=== PATIENT | male | born 1965 | race Caucasian/White ===

== ENCOUNTER 2017-07-11 12:55 | Inpatient (IN) | payer OTHER ==
[2017-07-11 16:17] VITALS: BMI 24.4
--- NOTE | 2017-07-11 17:44 | HP ---
COWS - Scale Resting Pulse: 1= TN 81-100 Sweatin= Chills/Flushing Restless Observation: 1= Difficult to Sit Still Pupil Size: 1= Pupils >than Normal Bone or Joint Aches: 1= Mild Discomfort Runny Nose/ Eye Tearin= Nasal Congestion GI Upset > 30mins: 2= Nausea/Diarrhea Tremor Observation: 2= Slight Tremor Visible Yawning Observation: 1= 1-2x During Session Anxiety or Irritability: 2=Irritable/Anxious Goose Flesh Skin: 3=Piloerection COWS Score: 16 Admission ROS S - [facility] Chief Complaint: heroin withdrawal sx Allergies/Adverse Reactions: Allergies Allergy/AdvReac Type Severity Reaction Status Date / Time Fish Containing Products Allergy Severe Verified 07/11/17 17:34 No Known Drug Allergies Allergy Verified 07/11/17 17:34 History of Present Illness: 52 yo m with OUD requesting inpatient detox fro [facility] because of opiodi withdrswwal sx. PMHX cutting while incarcerated scars visible c/o thirst, depression,a nxiety adn insomnia no si, h/o IDU no h/ OD. Exam Limitations: No Limitations - Ebola screening Have you traveled outside of the country in the last 21 days: Yes Have you had contact with anyone from an Ebola affected area: No Have you been sick,other than usual withdrawal symptoms: No Do you have a fever: No - Review of Systems Constitutional: Chills, Diaphoresis, Loss of Appetite, Malaise, Night Sweats, Changes in sleep, Unintentional Wgt. Loss EENT: reports: Tearing, Nose Congestion Respiratory: reports: No Symptoms reported Cardiac: reports: No Symptoms Reported GI: reports: Diarrhea, Nausea, Poor Appetite, Poor Fluid Intake, Indigestion, Abdominal cramping : reports: No Symptoms Reported Musculoskeletal: reports: Back Pain, Joint Pain, Muscle Pain Integumentary: reports: Flushing, Sweating Neuro: reports: Headache, Numbness, Paresthesia, Tremors, Weakness Endocrine: reports: Increased Thirst Hematology: reports: No Symptoms Reported Psychiatric: reports: Judgement Intact, Mood/Affect Appropiate, Orientated x3, Anxious, Depressed Other Systems: Reviewed and Negative Patient History - Patient Medical History Hx Anemia: No Hx Asthma: No Hx Chronic Obstructive Pulmonary Disease (COPD): No Hx Cancer: No Hx Cardiac Disorders: No Hx Congestive Heart Failure: No Hx Hypertension: No Hx Hypercholesterolemia: No Hx Pacemaker: No HX Cerebrovascular Accident: No Hx Seizures: No Hx Dementia: No Hx Diabetes: No Hx Gastrointestinal Disorders: No Hx Liver Disease: No Hx Genitourinary Disorders: No Hx Sexually Transmitted Disorders: No Hx Renal Disease (ESRD): No Hx Thyroid Disease: No Hx Human Immunodeficiency Virus (HIV): No Hx Hepatitis C: Yes (treated and cleared hcv) Hx Depression: Yes Hx Suicide Attempt: No (no si) Hx Bipolar Disorder: No Hx Schizophrenia: No Other Medical History: history of self cutting - Patient Surgical History Past Surgical History: No Anesthesia Reaction: No - PPD History Previous Implant?: Yes Documented Results: Negative w/proof Implanted On Prior R Admission?: No PPD to be Administered?: No - Reproductive History Patient is a Female of Child Bearing Age (11 -55 yrs old): No Patient : No - Smoking Cessation Smoking history: Current every day smoker Have you smoked in the past 12 months: Yes Aproximately how many cigarettes per day: 20 Hx Chewing Tobacco Use: No Initiated information on smoking cessation: Yes 'Breaking Loose' booklet given: 07/11/17 - Substance & Tx. History Hx Alcohol Use: No Hx Substance Use: Yes Substance Use Type: Heroin, Opiates Hx Substance Use Treatment: Yes (first episode of drug treatment) - Substances Abused Heroin Route: Injection Frequency: Daily Amount used: 4-15 bags Age of first use: 15 Date of Last Use: 07/10/17 Family Disease History - Family Disease History Family Disease History: Other: Father (suicide), Mother (cocaien depeendence, alcoholic) Admission Physical Exam S - Vital Signs Vital Signs: Vital Signs - 24 hr 07/11/17 16:16 Temperature 98 F Pulse Rate 69 Respiratory 18 Rate Blood Pressure 133/87 - Physical General Appearance: Yes: Nourished, Appropriately Dressed, Disheveled, Mild Distress, Thin, Tremorous, Irritable, Sweating, Anxious HEENTM: Yes: EOMI, Hearing grossly Normal, Normal ENT Inspection, Normocephalic , Normal Voice, IAN, Pharynx Normal, Nasal Congestion, Rhinorrhea Respiratory: Yes: Within Normal Limits, Chest Non-Tender, Lungs Clear, Normal Breath Sounds, No Respiratory Distress, No Accessory Muscle Use Neck: Yes: Within Normal Limits, No masses,lesions,Nodules, Supple, Trachea in good position Breast: Yes: Breast Exam Deferred Cardiology: Yes: Within Normal Limits, Regular Rhythm, Regular Rate, S1, S2 Abdominal: Yes: Normal Bowel Sounds, Non Tender, Flat, Soft Genitourinary: Yes: Within Normal Limits Back: Yes: Normal Inspection, Muscle Spasm Musculoskeletal: Yes: full range of Motion, Gait Steady, Pelvis Stable, Back pain, Muscle Pain Extremities: Yes: Normal Capillary Refill, Normal Inspection, Normal Range of Motion, Tremors Neurological: Yes: fish farmer II-XII NML intact, Fully Oriented, Alert, Motor Strength 5/5, Normal Response, Depressed Affect Integumentary: Yes: Normal Color, Warm, Diaphoresis, Moist, Track [place] (no infection or abscess) Lymphatic: Yes: Within Normal Limits - Addiitonal Findings: withdrawal sx - Diagnostic (1) Dehydration Current Visit: Yes Status: Acute (2) Deliberate self-cutting Current Visit: Yes Status: Acute (3) Depression Current Visit: Yes Status: Acute (4) Nicotine dependence Current Visit: Yes Status: Acute (5) Opioid dependence with withdrawal Current Visit: Yes Status: Acute Cleared for Admission [facility] - Detox or Rehab [facility] Level of Care: Medically Managed Detox Regimen/Protocol: Methadone [facility] Breath Alcohol Content Breath Alcohol Content: 0 Urine Drug Screen - Results Drug Screen Negative: No Urine Drug Screen Results: OPI-Opiates
[2017-07-11] MEDS ORDERED: MAG HYDROX/AL HYDROX/SIMETH 30 ML UNIT-DOSE CUP PO PRN (17:45)
[2017-07-11] MEDS ORDERED: LOPERAMIDE HCL 2 MG CAPSULE PO PRN (17:45)
[2017-07-11] MEDS ORDERED: NICOTINE POLACRILEX 4 MG GUM BC PRN (17:45)
[2017-07-11] MEDS ORDERED: IBUPROFEN 400 MG TABLET (FP) PO PRN (17:45)
[2017-07-11] MEDS ORDERED: MAGNESIUM HYDROX 2400MG/30ML ORAL SUSPENSION 30 ML CUP PO PRN (17:45)
[2017-07-11] MEDS ORDERED: MENTHOL/PHENOL 1 EACH UD MM PRN (17:45)
[2017-07-11] MEDS ORDERED: MAGNESIUM CITRATE 300 ML BOTTLE PO PRN (17:45)
[2017-07-11] MEDS ORDERED: P-EPHED 60MG/TRIPROLIDI 2.5MG TABLET PO PRN (17:45)
[2017-07-11] MEDS ORDERED: guaiFENesin/D-METHORPHAN HB 10 ML UNIT-DOSE CUPS PO PRN (17:45)
[2017-07-11] MEDS ORDERED: METHADONE HCL 10 MG TABLET (FOR DETOX USE ONLY) PO ONE ×3 (17:45→23:00)
[2017-07-11] MEDS ORDERED: ACETAMINOPHEN 325 MG TABLET (FP) PO PRN (17:45)
[2017-07-11] MEDS: diazePAM 5 MG TABLET PO PRN (20:39)
[2017-07-11] MEDS: NICOTINE 21 MG/24 HOURS TOPICAL PATCH TD SCH (20:41)
[2017-07-11] MEDS: THIAMINE HCL 100 MG TABLET (FP) PO SCH (22:05)
[2017-07-11] MEDS: hydrOXYzine PAMOATE 50 MG CAPSULE (FP) PO PRN (22:05)
[2017-07-12 00:30] LABS: URINE APPEARANCE CLEAR; URINE BILIRUBIN NEGATIVE (NEGATIVE); URINE BLOOD 1+ (NEGATIVE); URINE COLOR YELLOW; URINE GLUCOSE (UA) NEGATIVE (NEGATIVE); URINE KETONE NEGATIVE (NEGATIVE); URINE LEUK ESTERASE NEGATIVE (NEGATIVE); URINE NITRITE NEGATIVE (NEGATIVE); URINE PROTEIN NEGATIVE (NEGATIVE)
[2017-07-12 00:48] LABS: CALCIUM OXALATE CRYSTALS RARE /hpf (NONE SEEN); URINE HYALINE CAST 2 /lpf; URINE MUCUS MODERATE
[2017-07-12] MEDS: diazePAM 5 MG TABLET PO PRN ×4 (08:31→22:19)
[2017-07-12] MEDS ORDERED: METHADONE HCL 10 MG TABLET (FOR DETOX USE ONLY) PO ONE (10:00)
[2017-07-12] MEDS: NICOTINE 21 MG/24 HOURS TOPICAL PATCH TD SCH (10:13)
[2017-07-12] MEDS: PRENATAL VITAMINS W/ FOLIC ACID TABLET (FP) PO SCH (10:13)
[2017-07-12 11:01] LABS: HEMATOCRIT 43.5 % (35.4-49); HEMOGLOBIN 14.9 GM/dL (11.7-16.9); MCHC 34.3 g/dl (32.0-35.9); MEAN CELL VOLUME 90.3 fl (80-96); MEAN PLT VOLUME 9.7 fl (7.5-11.1); PLATELET COUNT 164 K/MM3 (134-434); RBC 4.82 M/mm3 (4.00-5.60); RDW 14.2 % (11.9-15.9); WHITE BLOOD COUNT 7.3 K/mm3 (4.0-10.0)
[2017-07-12 11:21] LABS: CHLORIDE 107 mmol/L (98-107); SODIUM 143 mmol/L (136-145)
[2017-07-12 11:32] LABS: ALBUMIN 3.2 g/dl (3.4-5.0); ALK PHOS 68 U/L (45-117); ANION GAP 11 (8-16); BILIRUBIN,TOTAL 0.4 mg/dL (0.2-1.0); BLOOD UREA NITROGEN 14 mg/dL (7-18); CALCIUM 8.4 mg/dL (8.5-10.1); CO2 25 mmol/L (21-32); CREATININE 0.8 mg/dL (0.7-1.3); GLUCOSE,RANDOM 86 mg/dL (74-106); SGOT/AST 21 U/L (15-37); SGPT/ALT 23 U/L (12-78)
--- NOTE | 2017-07-12 11:56 | EKG ---
Test Reason : Blood Pressure : / mmHG Vent. Rate : 060 BPM Atrial Rate : 060 BPM P-R Int : 124 ms QRS Dur : 088 ms QT Int : 400 ms P-R-T Axes : 061 064 065 degrees QTc Int : 400 ms NORMAL SINUS RHYTHM WITH SINUS ARRHYTHMIA NORMAL ECG NO PREVIOUS ECGS AVAILABLE Confirmed by MD MAHESH, NELIDA ([id number]) on 07/12/2017 11:55:52 AM Referred By: Confirmed By:NELIDA ARAGON MD
[2017-07-12 13:04] LABS: SICKLE CELL SCREEN NEGATIVE (NEGATIVE)
--- NOTE | 2017-07-12 14:05 | CONSULT ---
[facility] Psychiatric Consult - Data Date of interview: 07/12/17 Admission source: [facility] Identifying data: First admission to [facility] for this 52 y/o male seeking detox treatment on for heroin dependence.Patient is single without children,homeless,unemployed and deprived of any source of income. Substance Abuse History: Confirmed by patient.Smoking history: Current every day smoker. Have you smoked in the past 12 months: Yes. Aproximately how many cigarettes per day: 20. Hx Chewing Tobacco Use: No. Initiated information on smoking cessation: Yes. 'Breaking Loose' booklet given: 07/11/17. - Substance & Tx. History. Hx Alcohol Use: No. Hx Substance Use: Yes. Substance Use Type : Heroin, Opiates. Hx Substance Use Treatment: Yes (first episode of drug treatment). - Substances Abused. Heroin. Route: Injection. Frequency: Daily. Amount used: 4-15 bags. Age of first use: 15. Date of Last Use: Medical History: Hepatitis C (treated). Psychiatric History: Patient denies history of psychiatric hospitalizations or OPD care.Mr Erickson declares an antecedent of suicide attempts,during incaceration,via self-mutilation (cutting). Physical/Sexual Abuse/Trauma History: Not discussed in this session.Patient declines. Additional Comment: Urine Drug Screen Results: OPI-Opiates.Noted. Mental Status Exam - Mental Status Exam Alert and Oriented to: Time, Place, Person Cognitive Function: Good Patient Appearance: Well Groomed Mood: Withdrawn, Irritable Affect: Appropriate, Normal Range Patient Behavior: Appropriate, Cooperative (superficially) Speech Pattern: Clear, Appropriate Voice Loudness: Normal Thought Process: Intact, Goal Oriented Thought Disorder: Not Present Hallucinations: Denies Suicidal Ideation: Denies Homicidal Ideation: Denies Insight/Judgement: Poor Sleep: Poorly, Difficulty falling asleep Appetite: Good Muscle strength/Tone: Normal Gait/Station: Normal Psychiatric Findings - Problem List ([place] 1, 2,3) (1) Opioid dependence with withdrawal Current Visit: Yes Status: Acute (2) Nicotine dependence Current Visit: Yes Status: Acute (3) Substance induced mood disorder Current Visit: Yes Status: Suspected (4) Insomnia Current Visit: Yes Status: Acute - Initial Treatment Plan Initial Treatment Plan: Sleep hygiene.Psychoeducation.Detoxfication in progress.Ambien 10 mg po hs prn.Ordered.Patient is informed of the risk of sleep -walking.Pepito Erickson agrees with this plan of care.Observation.
--- NOTE | 2017-07-12 15:56 | PN ---
[facility] COWS - Scale Resting Pulse: 0= ND 80 or Below Sweatin= Chills/Flushing Restless Observation: 0= Sits Still Pupil Size: 0= Normal to Room Light Bone or Joint Aches: 2= Severe Diffuse Aches Runny Nose/ Eye Tearin= Nasal Congestion GI Upset > 30mins: 0= None Tremor Observation of Outstretched Hands: 0= None Yawning Observation: 2= >3x During Session Anxiety or Irritability: 2=Irritable/Anxious Goose Flesh Skin: 3=Piloerection COWS Score: 11 S Progress Note (SOAP) Subjective: Sweating, Body Aches, Fatigue, Interrupted Sleep. Objective: PATIENT A & O X 3. NO ACUTE DISTRESS. 07/12/17 15:53 Vital Signs Temperature 98.6 F 07/12/17 14:14 Pulse Rate 73 07/12/17 14:14 Respiratory Rate 16 07/12/17 14:14 Blood Pressure 107/66 07/12/17 14:14 O2 Sat by Pulse Oximetry (%) Laboratory Tests 07/11/17 07/12/17 07/12/17 21:22 07:50 07:50 WBC 7.3 RBC 4.82 Hgb 14.9 Hct 43.5 MCV 90.3 MCH 31.0 MCHC 34.3 RDW 14.2 Plt Count 164 MPV 9.7 Sickle Cell Screen Negative Sodium 143 Potassium 4.0 Chloride 107 Carbon Dioxide 25 Anion Gap 11 BUN 14 Creatinine 0.8 Creat Clearance w eGFR > 60 Random Glucose 86 Calcium 8.4 L Total Bilirubin 0.4 AST 21 ALT 23 Alkaline Phosphatase 68 Total Protein 6.0 L Albumin 3.2 L Urine Color Yellow Urine Appearance Clear Urine pH 6.0 Ur Specific [place] 1.025 Urine Protein Negative Urine Glucose (UA) Negative Urine Ketones Negative Urine Blood 1+ H Urine Nitrite Negative Urine Bilirubin Negative Urine Urobilinogen 2.0 Ur Leukocyte Esterase Negative Urine WBC (Auto) 2 Urine RBC (Auto) 23 Calcium Oxalate Crystal Rare Hyaline Casts 2 Urine Mucus Moderate LABS NOTED. RPR RESULT PENDING. 07/12/17 15:55 Assessment: 07/12/17 15:54 WITHDRAWAL SYMPTOMS. Plan: CONTINUE DETOX.
[2017-07-12] MEDS: THIAMINE HCL 100 MG TABLET (FP) PO SCH (22:18)
[2017-07-13] MEDS: diazePAM 5 MG TABLET PO PRN ×5 (02:20→22:32)
[2017-07-13] MEDS ORDERED: METHADONE HCL 5 MG TABLET (FOR DETOX USE ONLY) PO ONE (10:00)
[2017-07-13] MEDS: PRENATAL VITAMINS W/ FOLIC ACID TABLET (FP) PO SCH (10:16)
[2017-07-13] MEDS: NICOTINE 21 MG/24 HOURS TOPICAL PATCH TD SCH (10:17)
--- NOTE | 2017-07-13 16:10 | PN ---
S COWS - Scale Resting Pulse: 0= DC 80 or Below Sweatin= Chills/Flushing Restless Observation: 3= Extraneous Movement Pupil Size: 0= Normal to Room Light Bone or Joint Aches: 2= Severe Diffuse Aches Runny Nose/ Eye Tearin= Runny Nose/Eyes GI Upset > 30mins: 2= Nausea/Diarrhea Tremor Observation of Outstretched Hands: 2= Slight Tremor Visible Yawning Observation: 1= 1-2x During Session Anxiety or Irritability: 2=Irritable/Anxious Goose Flesh Skin: 0=Smooth Skin COWS Score: 15 [facility] Progress Note (SOAP) Subjective: Chills, sweating, interrupted sleep Objective: 07/13/17 16:06 Last Vital Signs Temp Pulse Resp BP Pulse Ox 97.4 F L 75 18 109/72 07/13/17 14:27 07/13/17 14:27 07/13/17 14:27 07/13/17 14:27 Laboratory Tests 07/11/17 07/12/17 07/12/17 21:22 07:50 07:50 WBC 7.3 RBC 4.82 Hgb 14.9 Hct 43.5 MCV 90.3 MCH 31.0 MCHC 34.3 RDW 14.2 Plt Count 164 MPV 9.7 Sickle Cell Screen Negative Sodium 143 Potassium 4.0 Chloride 107 Carbon Dioxide 25 Anion Gap 11 BUN 14 Creatinine 0.8 Creat Clearance w eGFR > 60 Random Glucose 86 Calcium 8.4 L Total Bilirubin 0.4 AST 21 ALT 23 Alkaline Phosphatase 68 Total Protein 6.0 L Albumin 3.2 L Urine Color Yellow Urine Appearance Clear Urine pH 6.0 Ur Specific [place] 1.025 Urine Protein Negative Urine Glucose (UA) Negative Urine Ketones Negative Urine Blood 1+ H Urine Nitrite Negative Urine Bilirubin Negative Urine Urobilinogen 2.0 Ur Leukocyte Esterase Negative Urine WBC (Auto) 2 Urine RBC (Auto) 23 Calcium Oxalate Crystal Rare Hyaline Casts 2 Urine Mucus Moderate RPR Titer 07/12/17 07:50 WBC RBC Hgb Hct MCV MCH MCHC RDW Plt Count MPV Sickle Cell Screen Sodium Potassium Chloride Carbon Dioxide Anion Gap BUN Creatinine Creat Clearance w eGFR Random Glucose Calcium Total Bilirubin AST ALT Alkaline Phosphatase Total Protein Albumin Urine Color Urine Appearance Urine pH Ur Specific [place] Urine Protein Urine Glucose (UA) Urine Ketones Urine Blood Urine Nitrite Urine Bilirubin Urine Urobilinogen Ur Leukocyte Esterase Urine WBC (Auto) Urine RBC (Auto) Calcium Oxalate Crystal Hyaline Casts Urine Mucus RPR Titer Nonreactive Labs noted: abnormal UA Assessment: 07/13/17 16:08 Withdrawal symptoms Noted with microscopic hematuria Plan: Continue detox Microscopic hematuria: encouraged to drink lots of water, repeat UA
[2017-07-13] MEDS: THIAMINE HCL 100 MG TABLET (FP) PO SCH (22:04)
[2017-07-14] MEDS: diazePAM 5 MG TABLET PO PRN ×3 (05:21→14:43)
[2017-07-14] MEDS ORDERED: METHADONE HCL 5 MG TABLET (FOR DETOX USE ONLY) PO ONE (10:00)
[2017-07-14] MEDS: PRENATAL VITAMINS W/ FOLIC ACID TABLET (FP) PO SCH (10:13)
[2017-07-14 10:18] LABS: URINE APPEARANCE CLEAR; URINE BILIRUBIN NEGATIVE (NEGATIVE); URINE BLOOD NEGATIVE (NEGATIVE); URINE COLOR LTYELLOW; URINE GLUCOSE (UA) NEGATIVE (NEGATIVE); URINE KETONE NEGATIVE (NEGATIVE); URINE LEUK ESTERASE NEGATIVE (NEGATIVE); URINE NITRITE NEGATIVE (NEGATIVE); URINE PROTEIN NEGATIVE (NEGATIVE); URINE UROBILINOGEN NEGATIVE mg/dL (0.2-1.0)
[2017-07-14] MEDS: NICOTINE 21 MG/24 HOURS TOPICAL PATCH TD SCH (11:54)
--- NOTE | 2017-07-14 13:11 | PN ---
S Progress Note (SOAP) Subjective: Tremors abd cramp Sleep disturbance Objective: 07/14/17 13:09 A & O X 3 No acute distress Denies SI/HI Vital Signs Temperature 98.1 F 07/14/17 09:56 Pulse Rate 73 07/14/17 09:56 Respiratory Rate 18 07/14/17 09:56 Blood Pressure 111/74 07/14/17 09:56 O2 Sat by Pulse Oximetry (%) Laboratory Last Values WBC 7.3 K/mm3 (4.0-10.0) 07/12/17 07:50 RBC 4.82 M/mm3 (4.00-5.60) 07/12/17 07:50 Hgb 14.9 GM/dL (11.7-16.9) 07/12/17 07:50 Hct 43.5 % (35.4-49) 07/12/17 07:50 MCV 90.3 fl (80-96) 07/12/17 07:50 MCH 31.0 pg (25.7-33.7) 07/12/17 07:50 MCHC 34.3 g/dl (32.0-35.9) 07/12/17 07:50 RDW 14.2 % (11.9-15.9) 07/12/17 07:50 Plt Count 164 K/MM3 (134-434) 07/12/17 07:50 MPV 9.7 fl (7.5-11.1) 07/12/17 07:50 Sickle Cell Screen Negative (NEGATIVE) 07/12/17 07:50 Sodium 143 mmol/L (136-145) 07/12/17 07:50 Potassium 4.0 mmol/L (3.5-5.1) 07/12/17 07:50 Chloride 107 mmol/L (98-107) 07/12/17 07:50 Carbon Dioxide 25 mmol/L (21-32) 07/12/17 07:50 Anion Gap 11 (8-16) 07/12/17 07:50 BUN 14 mg/dL (7-18) 07/12/17 07:50 Creatinine 0.8 mg/dL (0.7-1.3) 07/12/17 07:50 Creat Clearance w eGFR > 60 (>60) 07/12/17 07:50 Random Glucose 86 mg/dL (74-106) 07/12/17 07:50 Calcium 8.4 mg/dL (8.5-10.1) L 07/12/17 07:50 Total Bilirubin 0.4 mg/dL (0.2-1.0) 07/12/17 07:50 AST 21 U/L (15-37) 07/12/17 07:50 ALT 23 U/L (12-78) 07/12/17 07:50 Alkaline Phosphatase 68 U/L (45-117) 07/12/17 07:50 Total Protein 6.0 g/dl (6.4-8.2) L 07/12/17 07:50 Albumin 3.2 g/dl (3.4-5.0) L 07/12/17 07:50 Urine Color Ltyellow 07/14/17 07:00 Urine Appearance Clear 07/14/17 07:00 Urine pH 6.0 (5.0-8.0) 07/14/17 07:00 Ur Specific [place] 1.013 (1.001-1.035) 07/14/17 07:00 Urine Protein Negative (NEGATIVE) 07/14/17 07:00 Urine Glucose (UA) Negative (NEGATIVE) 07/14/17 07:00 Urine Ketones Negative (NEGATIVE) 07/14/17 07:00 Urine Blood Negative (NEGATIVE) 07/14/17 07:00 Urine Nitrite Negative (NEGATIVE) 07/14/17 07:00 Urine Bilirubin Negative (NEGATIVE) 07/14/17 07:00 Urine Urobilinogen Negative mg/dL (0.2-1.0) 07/14/17 07:00 Ur Leukocyte Esterase Negative (NEGATIVE) 07/14/17 07:00 Urine WBC (Auto) 2 /hpf (3-5) 07/11/17 21:22 Urine RBC (Auto) 23 /hpf (0-3) 07/11/17 21:22 Calcium Oxalate Crystal Rare /hpf (NONE SEEN) 07/11/17 21:22 Hyaline Casts 2 /lpf 07/11/17 21:22 Urine Mucus Moderate 07/11/17 21:22 RPR Titer Nonreactive (NONREACTIVE) 07/12/17 07:50 labs/UA noted Assessment: 07/14/17 13:10 withdrawal sx Plan: continue detox Increase hydration
[2017-07-14] MEDS: hydrOXYzine PAMOATE 50 MG CAPSULE (FP) PO PRN (19:44)
[2017-07-14] MEDS: THIAMINE HCL 100 MG TABLET (FP) PO SCH (22:27)
[2017-07-15] MEDS ORDERED: METHADONE HCL 10 MG TABLET (FOR DETOX USE ONLY) PO ONE (10:00)
[2017-07-15] MEDS: NICOTINE 21 MG/24 HOURS TOPICAL PATCH TD SCH (10:27)
[2017-07-15] MEDS: PRENATAL VITAMINS W/ FOLIC ACID TABLET (FP) PO SCH (10:27)
--- NOTE | 2017-07-15 12:31 | PN ---
[facility] Progress Note (SOAP) Subjective: Constipation, Stomach Cramping, Fatigue, Tremors. Objective: PATIENT A & O X 3. NO ACUTE DISTRESS. 07/15/17 12:30 Vital Signs Temperature 97.3 F L 07/15/17 09:07 Pulse Rate 82 07/15/17 09:07 Respiratory Rate 18 07/15/17 09:07 Blood Pressure 118/74 07/15/17 09:07 O2 Sat by Pulse Oximetry (%) Laboratory Tests 07/11/17 07/12/17 07/12/17 21:22 07:50 07:50 WBC 7.3 RBC 4.82 Hgb 14.9 Hct 43.5 MCV 90.3 MCH 31.0 MCHC 34.3 RDW 14.2 Plt Count 164 MPV 9.7 Sickle Cell Screen Negative Sodium 143 Potassium 4.0 Chloride 107 Carbon Dioxide 25 Anion Gap 11 BUN 14 Creatinine 0.8 Creat Clearance w eGFR > 60 Random Glucose 86 Calcium 8.4 L Total Bilirubin 0.4 AST 21 ALT 23 Alkaline Phosphatase 68 Total Protein 6.0 L Albumin 3.2 L Urine Color Yellow Urine Appearance Clear Urine pH 6.0 Ur Specific [employer] 1.025 Urine Protein Negative Urine Glucose (UA) Negative Urine Ketones Negative Urine Blood 1+ H Urine Nitrite Negative Urine Bilirubin Negative Urine Urobilinogen 2.0 Ur Leukocyte Esterase Negative Urine WBC (Auto) 2 Urine RBC (Auto) 23 Calcium Oxalate Crystal Rare Hyaline Casts 2 Urine Mucus Moderate RPR Titer 07/12/17 07/14/17 07:50 07:00 WBC RBC Hgb Hct MCV MCH MCHC RDW Plt Count MPV Sickle Cell Screen Sodium Potassium Chloride Carbon Dioxide Anion Gap BUN Creatinine Creat Clearance w eGFR Random Glucose Calcium Total Bilirubin AST ALT Alkaline Phosphatase Total Protein Albumin Urine Color Ltyellow Urine Appearance Clear Urine pH 6.0 Ur Specific [employer] 1.013 Urine Protein Negative Urine Glucose (UA) Negative Urine Ketones Negative Urine Blood Negative Urine Nitrite Negative Urine Bilirubin Negative Urine Urobilinogen Negative Ur Leukocyte Esterase Negative Urine WBC (Auto) Urine RBC (Auto) Calcium Oxalate Crystal Hyaline Casts Urine Mucus RPR Titer Nonreactive LABS NOTED. Assessment: 07/15/17 12:30 WITHDRAWAL SYMPTOMS. Plan: CONTINUE DETOX.
[2017-07-15] MEDS: hydrOXYzine PAMOATE 50 MG CAPSULE (FP) PO PRN (22:26)
[2017-07-15] MEDS: THIAMINE HCL 100 MG TABLET (FP) PO SCH (22:26)
[2017-07-16] MEDS ORDERED: METHADONE HCL 5 MG TABLET (FOR DETOX USE ONLY) PO ONE (06:00)
[2017-07-16 06:28] VITALS: TEMP 97
[2017-07-16 09:12] VITALS: BP 119/74; PULSE 77
[2017-07-16] MEDS: NICOTINE 21 MG/24 HOURS TOPICAL PATCH TD SCH (11:48)
[2017-07-16] MEDS: PRENATAL VITAMINS W/ FOLIC ACID TABLET (FP) PO SCH (11:49)
--- NOTE | 2017-07-16 11:49 | DS ---
[facility] Detox Discharge Summary Admission Date: 07/11/17 Discharge Date: 07/16/17 - History Present History: Opioid Dependence Additional Comments: PATIENT GOING TO [facility] ([place]) FOR AFTERCARE. PATIENT WAS DISCHARGED FROM DETOX UNIT IN STABLE MEDICAL CONDITION. Pertinent Past History: Nicotine Dependence, Insomnia, Depression, History of Self-Cutting, Hep C ( Treated). - Physical Exam Results Vital Signs: Vital Signs Temperature 97.0 F L 07/16/17 09:11 Pulse Rate 77 07/16/17 09:11 Respiratory Rate 20 07/16/17 09:11 Blood Pressure 119/74 07/16/17 09:11 O2 Sat by Pulse Oximetry (%) Pertinent Admission Physical Exam Findings: WITHDRAWAL SYMPTOMS. Laboratory Tests 07/11/17 07/12/17 07/12/17 21:22 07:50 07:50 WBC 7.3 RBC 4.82 Hgb 14.9 Hct 43.5 MCV 90.3 MCH 31.0 MCHC 34.3 RDW 14.2 Plt Count 164 MPV 9.7 Sickle Cell Screen Negative Sodium 143 Potassium 4.0 Chloride 107 Carbon Dioxide 25 Anion Gap 11 BUN 14 Creatinine 0.8 Creat Clearance w eGFR > 60 Random Glucose 86 Calcium 8.4 L Total Bilirubin 0.4 AST 21 ALT 23 Alkaline Phosphatase 68 Total Protein 6.0 L Albumin 3.2 L Urine Color Yellow Urine Appearance Clear Urine pH 6.0 Ur Specific [place] 1.025 Urine Protein Negative Urine Glucose (UA) Negative Urine Ketones Negative Urine Blood 1+ H Urine Nitrite Negative Urine Bilirubin Negative Urine Urobilinogen 2.0 Ur Leukocyte Esterase Negative Urine WBC (Auto) 2 Urine RBC (Auto) 23 Calcium Oxalate Crystal Rare Hyaline Casts 2 Urine Mucus Moderate RPR Titer 07/12/17 07/14/17 07:50 07:00 WBC RBC Hgb Hct MCV MCH MCHC RDW Plt Count MPV Sickle Cell Screen Sodium Potassium Chloride Carbon Dioxide Anion Gap BUN Creatinine Creat Clearance w eGFR Random Glucose Calcium Total Bilirubin AST ALT Alkaline Phosphatase Total Protein Albumin Urine Color Ltyellow Urine Appearance Clear Urine pH 6.0 Ur Specific [place] 1.013 Urine Protein Negative Urine Glucose (UA) Negative Urine Ketones Negative Urine Blood Negative Urine Nitrite Negative Urine Bilirubin Negative Urine Urobilinogen Negative Ur Leukocyte Esterase Negative Urine WBC (Auto) Urine RBC (Auto) Calcium Oxalate Crystal Hyaline Casts Urine Mucus RPR Titer Nonreactive LABS NOTED. - Treatment Hospital Course: Detox Protocol Followed, Detoxed Safely, Responded well, Discharged Condition Good, Rehab Referral Accepted Patient has Accepted a Rehab Referral to: [facility] ([place], [place] . - Medication Discharge Medications: Ambulatory Orders NK [No Known Home Medication] 07/11/17 - Diagnosis (1) Deliberate self-cutting Current Visit: Yes Status: Acute (2) Nicotine dependence Current Visit: Yes Status: Chronic Qualifiers: Nicotine product type: cigarettes Substance use status: uncomplicated Qualified Code(s): F17.210 - Nicotine dependence, cigarettes, uncomplicated (3) Opioid dependence with withdrawal Current Visit: Yes Status: Acute (4) Dehydration Current Visit: Yes Status: Acute (5) Depression Current Visit: Yes Status: Chronic Qualifiers: Depression Type: unspecified Qualified Code(s): F32.9 - Major depressive disorder, single episode, unspecified (6) Insomnia Current Visit: Yes Status: Acute Qualifiers: Insomnia type: unspecified Qualified Code(s): G47.00 - Insomnia, unspecified (7) Substance induced mood disorder Current Visit: Yes Status: Suspected - AMA Did Patient Leave Against Medical Advice: No
--- NOTE | 2017-07-16 13:30 | PN ---
[facility] Progress Note (SOAP) Subjective: Patient Reports that current Detox symptoms are minimal and that he feels well overall at this time. Objective: PATIENT A & O X 3, OBSERVED AMBULATING ON UNIT. NO ACUTE DISTRESS. 07/16/17 13:28 Vital Signs Temperature 97.0 F L 07/16/17 09:11 Pulse Rate 77 07/16/17 09:11 Respiratory Rate 20 07/16/17 09:11 Blood Pressure 119/74 07/16/17 09:11 O2 Sat by Pulse Oximetry (%) Laboratory Tests 07/11/17 07/12/17 07/12/17 21:22 07:50 07:50 WBC 7.3 RBC 4.82 Hgb 14.9 Hct 43.5 MCV 90.3 MCH 31.0 MCHC 34.3 RDW 14.2 Plt Count 164 MPV 9.7 Sickle Cell Screen Negative Sodium 143 Potassium 4.0 Chloride 107 Carbon Dioxide 25 Anion Gap 11 BUN 14 Creatinine 0.8 Creat Clearance w eGFR > 60 Random Glucose 86 Calcium 8.4 L Total Bilirubin 0.4 AST 21 ALT 23 Alkaline Phosphatase 68 Total Protein 6.0 L Albumin 3.2 L Urine Color Yellow Urine Appearance Clear Urine pH 6.0 Ur Specific [place] 1.025 Urine Protein Negative Urine Glucose (UA) Negative Urine Ketones Negative Urine Blood 1+ H Urine Nitrite Negative Urine Bilirubin Negative Urine Urobilinogen 2.0 Ur Leukocyte Esterase Negative Urine WBC (Auto) 2 Urine RBC (Auto) 23 Calcium Oxalate Crystal Rare Hyaline Casts 2 Urine Mucus Moderate RPR Titer 07/12/17 07/14/17 07:50 07:00 WBC RBC Hgb Hct MCV MCH MCHC RDW Plt Count MPV Sickle Cell Screen Sodium Potassium Chloride Carbon Dioxide Anion Gap BUN Creatinine Creat Clearance w eGFR Random Glucose Calcium Total Bilirubin AST ALT Alkaline Phosphatase Total Protein Albumin Urine Color Ltyellow Urine Appearance Clear Urine pH 6.0 Ur Specific [place] 1.013 Urine Protein Negative Urine Glucose (UA) Negative Urine Ketones Negative Urine Blood Negative Urine Nitrite Negative Urine Bilirubin Negative Urine Urobilinogen Negative Ur Leukocyte Esterase Negative Urine WBC (Auto) Urine RBC (Auto) Calcium Oxalate Crystal Hyaline Casts Urine Mucus RPR Titer Nonreactive LABS NOTED. Assessment: 07/16/17 13:28 WITHDRAWAL SYMPTOMS. Plan: PATIENT COMPLETED FULL DETOX REGIMEN (METHADONE), SCHEDULED FOR DISCHARGE FROM DETOX UNIT TODAY. PATIENT SCHEDULED TO GO ON TO [facility].
== END 2017-07-16 14:16 | disposition other institution (70) | DRG 773 ==
LOC: YASAS 12:55 → Y3N 18:28
PROVIDERS: ADMIT Internal Medicine; ATTEND Internal Medicine
PROC: HZ2ZZZZ Detoxification Services for Substance Abuse Treatment (ICD-10-PCS; principal; 2017-07-11)
DX: F11.23 Opioid dependence with withdrawal (principal); F17.210 Nicotine dependence, cigarettes, uncomplicated; F32.9 Major depressive disorder, single episode, unspecified; F19.24 Other psychoactive substance dependence with psychoactive substance-induced mood disorder; E86.0 Dehydration; G47.00 Insomnia, unspecified; R31.29 Other microscopic hematuria; Z91.013 Allergy to seafood; Z91.5 Personal history of self-harm; Z59.0 Homelessness
CPT/HCPCS: 36415; 80053; 81003; 81015; 85027; 85660; 86593; 93005; 93010

== ENCOUNTER 2017-07-16 13:43 | Inpatient (IN) | payer OTHER ==
--- NOTE | 2017-07-16 11:45 | HP ---
[facility] Rehab Assess/Revision - Admission History Admitted to Rehab from: [facility] Date of Admission to Rehab: 07/16/2017 - Vital signs Vital Signs: NOTED; STABLE. - Findings Detox History & Physical reviewed: Yes Concur with findings: Yes Comments/Additional Findings: PATIENT'S MEDICAL / MEDICATION HISTORY REVIEWED PRIOR TO DISCHARGE FROM DETOX UNIT. PATIENT WAS DISCHARGED FROM DETOX UNIT TO BE TAKEN TO REHAB UNIT IN STABLE MEDICAL CONDITION. Inpatient Rehab Admission - Initial Determination Are CD services needed?: Yes Free of communicable disease: Yes Not in need of hospitalization: Yes - Rehab Admission Criteria Poor recovery environment: Yes Comorbidities: Yes Patient is meeting Inpatient Rehab admission criteria:: Yes
[~2017-07-16 13:43] MED LIST: ACETAMINOPHEN 325 MG TABLET (FP) PO PRN; IBUPROFEN 400 MG TABLET (FP) PO PRN; LOPERAMIDE HCL 2 MG CAPSULE PO PRN; MAG HYDROX/AL HYDROX/SIMETH 30 ML UNIT-DOSE CUP PO PRN; MAGNESIUM CITRATE 300 ML BOTTLE PO PRN; MAGNESIUM HYDROX 2400MG/30ML ORAL SUSPENSION 30 ML CUP PO PRN; MENTHOL/PHENOL 1 EACH UD MM PRN; NICOTINE POLACRILEX 4 MG GUM BUC PRN; P-EPHED 60MG/TRIPROLIDI 2.5MG TABLET PO PRN; guaiFENesin/D-METHORPHAN HB 10 ML UNIT-DOSE CUPS PO PRN
[2017-07-16] MEDS: THIAMINE HCL 100 MG TABLET (FP) PO SCH (21:46)
[2017-07-17] MEDS ORDERED: PRENATAL VITAMINS W/ FOLIC ACID TABLET (FP) PO SCH (10:00)
[2017-07-17] MEDS ORDERED: NICOTINE 21 MG/24 HOURS TOPICAL PATCH TD SCH (10:00)
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
[2017-07-17] MEDS ORDERED: PNEUMOCOCCAL 23 VACCINE 0.5 ML VIAL IM ONE (12:00)
[2017-07-17] MEDS ORDERED: PNEUMOC 13-VAL CONJ-DIP CRM/PF 0.5 ML DISP.SYRIN IM ONE (12:00)
[2017-07-17] MEDS: GABAPENTIN 100 MG CAPSULE (FP) PO SCH ×2 (14:31→21:27)
[2017-07-17] MEDS: THIAMINE HCL 100 MG TABLET (FP) PO SCH (21:27)
[2017-07-17] MEDS ORDERED: QUEtiapine FUMARATE 25 MG TABLET (FP) PO SCH (22:00)
[2017-07-18] MEDS: GABAPENTIN 100 MG CAPSULE (FP) PO SCH (06:25)
[2017-07-18 07:04] VITALS: BP 122/73; PULSE 77; TEMP 98.4
--- NOTE | 2017-07-18 10:14 | PN ---
[facility] Progress Note Note: Called by nursing staff to report patient's decision to leave against medical advise without completing treatment. He was asked to wait for personal lines underwriter and he refused. Reportedly, he was determined to leave against medical advice despite encouragement by nursing staff to stay and complete this program. He was reportedly stable on discharge
== END 2017-07-18 08:30 | disposition left against medical advice (07) | DRG 770 ==
LOC: YASAS 13:43 → Y5N 13:45
PROVIDERS: ADMIT Psychiatry & Neurology Psychiatry; ATTEND Psychiatry & Neurology Psychiatry
PROC: HZ42ZZZ Group Counseling for Substance Abuse Treatment, Cognitive-Behavioral (ICD-10-PCS; principal; 2017-07-18)
DX: F11.20 Opioid dependence, uncomplicated (principal); F17.210 Nicotine dependence, cigarettes, uncomplicated; F31.89 Other bipolar disorder; Z59.0 Homelessness
CPT/HCPCS: 90732; G0009

== ENCOUNTER 2022-04-11 13:35 | Inpatient (IN) | payer OTHER ==
[2022-04-11 15:16] VITALS: BMI 26.2
[2022-04-11] MEDS ORDERED: POLYETHYLENE GLYCOL (HEALTHYLAX) 3350 17 GM PACKET PO PRN (15:54)
[2022-04-11] MEDS ORDERED: NALOXONE HCL (KLOXXADO) 8 MG SPRAY NS PRN (15:54)
[2022-04-11] MEDS ORDERED: MAG HYDROX/AL HYDROX/SIMETH 30 ML UNIT-DOSE CUP PO PRN (15:54)
[2022-04-11] MEDS ORDERED: ACETAMINOPHEN 325 MG TABLET (FP) PO PRN ×2 (15:54)
[2022-04-11] MEDS ORDERED: BISMUTH SUBSALICYLATE 524 MG/30 ML PO PRN (15:54)
[2022-04-11] MEDS ORDERED: METHOCARBAMOL 500 MG TABLET PO PRN (15:54)
[2022-04-11] MEDS ORDERED: DICYCLOMINE HCL 10 MG CAPSULE PO PRN (15:54)
[2022-04-11] MEDS ORDERED: ONDANSETRON *ODT* 4 MG TABLET SL PRN (15:54)
[2022-04-11] MEDS ORDERED: NICOTINE 10 MG CARTRIDGE (INHALER) IH PRN (15:54)
[2022-04-11] MEDS ORDERED: NICOTINE POLACRILEX 4 MG GUM BUC PRN (15:54)
[2022-04-11] MEDS ORDERED: LOPERAMIDE HCL 2 MG CAPSULE PO PRN (15:54)
[2022-04-11] MEDS ORDERED: NICOTINE 21 MG/24 HOURS TOPICAL PATCH TD PRN (15:54)
[2022-04-11] MEDS ORDERED: hydrOXYzine PAMOATE 25 MG CAPSULE (FP) PO PRN (15:54)
[2022-04-11] MEDS ORDERED: MAGNESIUM HYDROX 2400MG/30ML ORAL SUSPENSION 30 ML CUP PO PRN (15:54)
[2022-04-11] MEDS ORDERED: IBUPROFEN 400 MG TABLET (FP) PO PRN (15:54)
[2022-04-11] MEDS ORDERED: methaDONE HCL 10 MG TABLET (FOR DETOX USE ONLY) PO ONE ×2 (15:54→18:15)
[2022-04-11] MEDS ORDERED: cloNIDine HCL 0.1 MG TABLET PO PRN (15:54)
[2022-04-11] MEDS ORDERED: BENZOCAINE/MENTHOL (CHLORASEPTIC ) LOZENGE MM PRN (15:54)
[2022-04-11] MEDS ORDERED: P-EPHED 60MG/TRIPROLIDI 2.5MG TABLET PO PRN (15:54)
[2022-04-11] MEDS ORDERED: IBUPROFEN 600 MG TABLET (FP) PO PRN (15:54)
[2022-04-11] MEDS ORDERED: MELATONIN 5 MG TABLETS PO SCH (22:00)
[2022-04-11] MEDS ORDERED: THIAMINE HCL 100 MG TABLET (FP) PO SCH (22:00)
[2022-04-12 09:34] VITALS: BP 113/68; PULSE 62; RESP 18; TEMP 97.5
[2022-04-12] MEDS ORDERED: PRENATAL VITAMINS W/ FOLIC ACID TABLET (FP) PO SCH (10:00)
[2022-04-12 10:54] LABS: HEMATOCRIT 42.5 % (35.4-49); HEMOGLOBIN 14.2 GM/dL (11.7-16.9); MCH 30.1 pg (25.7-33.7); MCHC 33.5 g/dl (32.0-35.9); MEAN CELL VOLUME 89.7 fl (80-96); MEAN PLT VOLUME 9.6 fl (7.5-11.1); PLATELET COUNT 157 10^3/uL (134-434); RBC 4.73 M/mm3 (4.00-5.60); RDW 14.8 % (11.9-15.9); WHITE BLOOD COUNT 9.5 K/mm3 (4.0-10.0)
[2022-04-12 11:02] LABS: ALBUMIN 3.4 g/dl (3.4-5.0); CALCIUM 8.5 mg/dL (8.5-10.1)
[2022-04-12 11:03] LABS: BLOOD UREA NITROGEN 17.1 mg/dL (7-18)
[2022-04-12 11:05] LABS: CREATININE 0.9 mg/dL (0.55-1.3)
[2022-04-12 11:06] LABS: TOT PROT 6.1 g/dl (6.4-8.2)
[2022-04-12 11:07] LABS: BILIRUBIN,TOTAL 0.3 mg/dL (0.2-1)
[2022-04-13] MEDS ORDERED: methaDONE HCL 10 MG TABLET (FOR DETOX USE ONLY) PO ONE (10:00)
[2022-04-15] MEDS ORDERED: methaDONE HCL 10 MG TABLET (FOR DETOX USE ONLY) PO ONE (10:00)
== END 2022-04-12 16:38 | disposition left against medical advice (07) | DRG 770 ==
LOC: YASAS 13:35 → Y3N 16:35 → Y6N 16:38
PROVIDERS: ADMIT Allergy & Immunology; ATTEND Surgery
PROC: HZ2ZZZZ Detoxification Services for Substance Abuse Treatment (ICD-10-PCS; principal; 2022-04-11)
DX: F11.23 Opioid dependence with withdrawal (principal); F17.210 Nicotine dependence, cigarettes, uncomplicated; F31.9 Bipolar disorder, unspecified; F41.9 Anxiety disorder, unspecified; Z56.0 Unemployment, unspecified; Z59.00 Homelessness unspecified
CPT/HCPCS: 36415; 80053; 82140; 85027; 86593; 86780; 93005; 93010; C9803-CS; U0003; U0005